=== PATIENT | female | born 1975 | race Caucasian/White ===

== ENCOUNTER 2018-11-25 10:10 | Emergency (ER) | payer BC ==
[2018-11-25 10:35] VITALS: BP 144/90
[2018-11-25] MEDS ORDERED: Ondansetron 4 MG/2 ML SDV IVPUSH ONE (10:41)
[2018-11-25] MEDS ORDERED: Sodium Chloride 0.9% 1,000 ML IV ONE (10:41)
[2018-11-25] MEDS ORDERED: Ketorolac 30 MG/ML SDV IVPUSH ONE (10:41)
--- NOTE | 2018-11-25 10:44 | EDM.PDOC ---
ED HPI GENERAL MEDICAL PROBLEM - General Chief Complaint: General Stated Complaint: Right Flank Pain Time Seen by Provider: 11/25/18 10:30 Source of Information: Reports: Patient History Limitations: Reports: No Limitations - History of Present Illness INITIAL COMMENTS - FREE TEXT/NARRATIVE: 43 YO WF presents to ER with sudden onset right flank pain with radiation to RLQ. Pt reports symptoms began 5am after using the restroom. Pt reports mild dysuria and frequent UTIs but states this feels different. Pt with associated nausea without vomiting. Pt denies fever/chills. Pt denies recent illnesses. Pt has had hysterectomy in the past. Onset: Today Duration: Hour(s): (6) Location: Reports: Abdomen, Back, Radiates to Quality: Reports: Sharp Severity: Moderate Improves with: Reports: None Worsens with: Reports: None Associated Symptoms: Reports: No Other Symptoms, Nausea/Vomiting Treatments DISASSEMBLER: Reports: Acetaminophen Right Flank Pain Score (Numeric/FACES): 8 - Related Data Allergies Allergy/AdvReac Type Severity Reaction Status Date / Time No Known Drug Allergies Allergy Cannot Verified 11/25/18 10:35 Remember Home Meds: Home Meds Omeprazole [Prilosec] 20 mg PO DAILY 04/06/15 [History] Cephalexin [Keflex] 500 mg PO Q8HR #30 capsule 11/25/18 [Rx] FLUoxetine HCl [Fluoxetine HCl] 20 mg PO DAILY 11/25/18 [History] Phenazopyridine [Pyridium] 200 mg PO TID #6 tab 11/25/18 [Rx] Warfarin Sodium [Jantoven] 5 mg PO Q48H 11/25/18 [History] Warfarin Sodium [Jantoven] 7.5 mg PO Q48H 11/25/18 [History] Past Medical History Other Musculoskeletal History: fracture finger and toe in the past. dislocation of the arm, dislocation of the shoulder. Other Hematologic History: has received iron infusions. Other Dermatologic History: skin gets itchy at times and takes loratadine, told her that it was from stress - Past Surgical History HEENT Surgical History: Reports: Tonsillectomy Female Surgical History: Reports: Hysterectomy Musculoskeletal Surgical History: Reports: Other (See Below) Other Musculoskeletal Surgeries/Procedures:: acl surgery ED ROS GENERAL - Review of Systems Review Of Systems: See Below Constitutional: Reports: No Symptoms HEENT: Reports: No Symptoms Respiratory: Reports: No Symptoms Cardiovascular: Reports: No Symptoms Endocrine: Reports: No Symptoms GI/Abdominal: Reports: Nausea : Reports: Dysuria Musculoskeletal: Reports: Back Pain Skin: Reports: No Symptoms Neurological: Reports: No Symptoms Psychiatric: Reports: No Symptoms Hematologic/Lymphatic: Reports: No Symptoms Immunologic: Reports: No Symptoms ED EXAM, GENERAL - Physical Exam Exam: See Below Exam Limited By: No Limitations General Appearance: Alert, WD/WN, Mild Distress Head: Atraumatic, Normocephalic Neck: Normal Inspection, Supple, Non-Tender, Full Range of Motion Respiratory/Chest: No Respiratory Distress, Lungs Clear, Normal Breath Sounds, No Accessory Muscle Use, Chest Non-Tender Cardiovascular: Normal Peripheral Pulses, Regular Rate, Rhythm, No Edema, No Gallop, No JVD, No Murmur, No Rub GI/Abdominal: Normal Bowel Sounds, Soft, Non-Tender, No Organomegaly, No Distention, No Abnormal Bruit, No Mass Back Exam: CVA Tenderness (R) Extremities: Normal Inspection, Normal Range of Motion, Non-Tender, Normal Capillary Refill, No Pedal Edema Neurological: Alert, Oriented, CN II-XII Intact, Normal Cognition, Normal Gait, Normal Reflexes, No Motor/Sensory Deficits Psychiatric: Normal Affect, Normal Mood Skin Exam: Warm, Dry, Intact, Normal Color, No Rash Lymphatic: No Adenopathy Course - Vital Signs Last Recorded V/S: Last Vital Signs Temp 36.2 C 11/25/18 10:25 Pulse 75 11/25/18 10:25 Resp 20 11/25/18 10:25 BP 144/90 H 11/25/18 10:25 Pulse Ox 96 11/25/18 10:25 - Orders/Labs/Meds Orders: Active Orders 24 hr Category Date Time Status Abdomen Pelvis wo Cont [CT] Stat Exams 11/25/18 10:46 Ordered URINALYSIS W/MICROSCOPIC [UA W/MICROSCOPIC] [URIN] Stat Lab 11/25/18 10:41 Ordered Sodium Chloride 0.9% [Normal Saline] 1,000 ml Med 11/25/18 10:41 Active IV .BOLUS Sodium Chloride 0.9% [Saline Flush] Med 11/25/18 11:06 Active 10 ml FLUSH Q8HR PRN Saline Lock Insert [OM.PC] Routine Oth 11/25/18 11:06 Ordered Medication Orders Sodium Chloride (Normal Saline) 1,000 mls @ 999 mls/hr IV .BOLUS ONE Stop: 11/25/18 11:41 Sodium Chloride (Saline Flush) 10 ml FLUSH Q8HR PRN PRN Reason: keep vein open Labs: Laboratory Tests 11/25/18 11/25/18 11/25/18 Range/Units 10:35 10:35 10:41 WBC 9.22 (5.00-10.00) 10^3/uL RBC 4.44 (3.80-5.50) 10^6/uL Hgb 14.6 (12.0-16.0) g/dL Hct 41.5 (37.0-47.0) % MCV 93.5 H (82.0-92.0) fL MCH 32.9 H (27.0-31.0) pg MCHC 35.2 (32.0-36.0) g/dL RDW 12.7 (11.5-14.5) % Plt Count 436 H (150-400) 10^3/uL MPV 8.7 (7.4-10.4) fL Immature Gran % (Auto) 0.1 (0.0-5.0) % Neut % (Auto) 78.1 H (50.0-70.0) % Lymph % (Auto) 15.3 L (20.0-40.0) % [place] % (Auto) 4.7 (2.0-8.0) % Eos % (Auto) 1.4 (1.0-3.0) % Baso % (Auto) 0.4 (0.0-1.0) % Immature Gran # (Auto) 0.01 (0.00-0.50) 10^3/uL Neut # (Auto) 7.20 H (2.50-7.00) 10^3/uL Lymph # (Auto) 1.41 (1.00-4.00) 10^3/uL [place] # (Auto) 0.43 (0.10-0.80) 10^3/uL Eos # (Auto) 0.13 (0.10-0.30) 10^3/uL Baso # (Auto) 0.04 (0.00-0.10) 10^3/uL Sodium 148 H (136-145) mmol/L Potassium 4.4 (3.3-5.3) mmol/L Chloride 102 (98-115) mmol/L Carbon Dioxide 24.0 (21.0-32.0) mmol/L Anion Gap 26.4 H (5-15) mmol/L BUN 13 (6-25) mg/dL Creatinine 0.68 (0.51-1.17) mg/dL Est Cr Clr Drug Dosing 104.81 mL/min Estimated GFR (MDRD) > 60 mL/min Glucose 91 (75 - 99) mg/dL Calcium 8.9 (8.7-10.3) mg/dL HCG, Qual Cancelled Urine Color Yellow (YELLOW) Urine Appearance Clear (CLEAR) Urine pH 7.0 (5.0-9.0) Ur Specific [place] 1.025 (1.005-1.030) Urine Protein Trace H (NEGATIVE) mg/dL Urine Glucose (UA) Negative (NEGATIVE) mg/dL Urine Ketones Negative (NEGATIVE) mg/dL Urine Occult Blood Trace-intact H (NEGATIVE) Urine Nitrite Negative (NEGATIVE) Urine Bilirubin Negative (NEGATIVE) Urine Urobilinogen 0.2 (0.2-1.0) E.U./dL Ur Leukocyte Esterase Negative (NEGATIVE) Meds: Medications Generic Name Dose Route Start Last Admin Trade Name Freq PRN Reason Stop Dose Admin Sodium Chloride 1,000 mls @ 999 mls/hr 11/25/18 10:41 Normal Saline IV 11/25/18 11:41 .BOLUS ONE Sodium Chloride 10 ml 11/25/18 11:06 Saline Flush FLUSH Q8HR PRN keep vein open Discontinued Medications Generic Name Dose Route Start Last Admin Trade Name Freq PRN Reason Stop Dose Admin Ketorolac Tromethamine 30 mg 11/25/18 10:41 Toradol IVPUSH 11/25/18 10:42 ONETIME ONE Ondansetron HCl 4 mg 11/25/18 10:41 Zofran IVPUSH 11/25/18 10:42 ONETIME ONE - Radiology Interpretation Free Text/Narrative:: CT abd/pelvis- NAD Departure - Departure Time of Disposition: 12:05 Disposition: Home, Self-Care 01 Condition: Good Clinical Impression: Urinary tract infection Qualifiers: Urinary tract infection type: acute cystitis Hematuria presence: without hematuria Qualified Code(s): N30.00 - Acute cystitis without hematuria - Discharge Information Prescriptions: Cephalexin [Keflex] 500 mg PO Q8HR #30 capsule Phenazopyridine [Pyridium] 200 mg PO TID #6 tab Instructions: Urinary Tract Infection, Adult, [id number] Referrals: Vicky Terry, RAP ARTIST [Primary Care Provider] - Forms: ED Department Discharge Additional Instructions: 1. discharge home 2. keflex 500mg PO TID x 10 days 3. pyridium 200mg PO TID #6 4. follow up with PCP in 48 hours for recheck and urine culture results 5. return to ER for worsening symptoms - My Orders Last 24 Hours: My Active Orders 11/25/18 10:41 URINALYSIS W/MICROSCOPIC [UA W/MICROSCOPIC] [URIN] Stat Sodium Chloride 0.9% [Normal Saline] 1,000 ml IV .BOLUS 11/25/18 10:46 Abdomen Pelvis wo Cont [CT] Stat 11/25/18 11:06 Sodium Chloride 0.9% [Saline Flush] 10 ml FLUSH Q8HR PRN Saline Lock Insert [OM.PC] Routine - Assessment/Plan Last 24 Hours: My Active Orders 11/25/18 10:41 URINALYSIS W/MICROSCOPIC [UA W/MICROSCOPIC] [URIN] Stat Sodium Chloride 0.9% [Normal Saline] 1,000 ml IV .BOLUS 11/25/18 10:46 Abdomen Pelvis wo Cont [CT] Stat 11/25/18 11:06 Sodium Chloride 0.9% [Saline Flush] 10 ml FLUSH Q8HR PRN Saline Lock Insert [OM.PC] Routine Assessment:: 1. urinary tract infection 2. right flank pain Plan: 1. discharge home 2. keflex 500mg PO TID x 10 days 3. pyridium 200mg PO TID #6 4. follow up with PCP in 48 hours for recheck and urine culture results 5. return to ER for worsening symptoms
[2018-11-25 11:02] LABS: ANION GAP 26.4 mmol/L (5-15); CHLORIDE,CL 102 mmol/L (98-115); SODIUM,NA 148 mmol/L (136-145)
[2018-11-25] MEDS ORDERED: Sodium Chloride 0.9% 10 ML Syringe FLUSH PRN (11:06)
[2018-11-25] MEDS ORDERED: Phenazopyridine 100 MG Tab PO ONE (11:45)
--- NOTE | 2018-11-25 12:02 | CT ---
[id number] CT/CT Abdomen Pelvis WO IV EXAM: ABDOMEN AND PELVIS CT WITHOUT CONTRAST INDICATION: PAIN. COMPARISON: None. DISCUSSION: There is a small fat-containing umbilical hernia. Scattered colonic diverticula without evidence of diverticulitis. Probable hysterectomy. Unenhanced images of the liver, gallbladder, spleen, pancreas, adrenal glands, kidneys, small bowel and the appendix are unremarkable. No adenopathy, free air free fluid. Scattered degenerative changes in the spine. The osseous structures are otherwise unremarkable. IMPRESSION: 1. No acute findings. Tani Carranza MD 11/25/18 1300 Thank you for allowing us to participate in the care of your patient.
[2018-11-25] MEDS ORDERED: Acetaminophen/HYDROcodone 325-5 MG Tab PO ONE (12:14)
== END 2018-11-25 12:25 | disposition home or self-care (01) ==
LOC: KA.ED 10:10
DX: N30.00 Acute cystitis without hematuria (principal); Z79.899 Other long term (current) drug therapy; Z79.01 Long term (current) use of anticoagulants
CPT/HCPCS: 36415; 74176; 80048; 81001; 85025; 87086; 96361; 96374; 96375; 99284-25; A9270-GY; J1885; J2405; J7030

== ENCOUNTER 2020-03-26 20:34 | Emergency (ER) | payer BC ==
[2020-03-26] MEDS: Diphtheria,Pertussis(Acell),Tetanus Vaccine 0.5 ML SDV IM ONE (21:00)
[2020-03-26] MEDS: Lidocaine 1% 20 ML MDV INJECT ONE (21:05)
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
[2020-03-26] MEDS: Lidocaine 1% 20 ML MDV ONE (22:11)
[2020-03-26 22:25] VITALS: BP 140/85; PULSE 82
== END 2020-03-26 21:55 | disposition home or self-care (01) ==
LOC: KA.ED 20:34
DX: S81.811A Laceration without foreign body, right lower leg, initial encounter (principal); K21.9 Gastro-esophageal reflux disease without esophagitis; F32.9 Major depressive disorder, single episode, unspecified; E66.9 Obesity, unspecified; Z68.35 Body mass index [BMI] 35.0-35.9, adult; Z79.899 Other long term (current) drug therapy; Z23 Encounter for immunization; W26.8XXA Contact with other sharp object(s), not elsewhere classified, initial encounter
CPT/HCPCS: 12004; 12015; 90471; 90715; 99282-25; 99283; J2001

== ENCOUNTER 2021-03-25 17:50 | Emergency (ER) | payer BC, MEDICAID ==
[2021-03-25 18:05] VITALS: BP 133/94; PULSE 98
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
[2021-03-25] MEDS ORDERED: Ketorolac 60 MG/2 ML SDV IM ONE (19:05)
[2021-03-25] MEDS ORDERED: Diclofenac Sodium 1% Gel 100 GM Tube TOP ONE (19:25)
--- NOTE | 2021-03-26 09:22 | CR ---
[id number] RAD/RAD Foot Left 3V Min Exam: RAD Foot Left 3V Min Indication:PAIN Comparison: No prior imaging for comparison. Discussion/Impression: No evidence of an acute fracture or dislocation. No AVN or erosive changes. Plantar calcaneal spur. Bradley Feng MD 03/26/21 0940 Thank you for allowing us to participate in the care of your patient.
== END 2021-03-25 19:20 | disposition home or self-care (01) ==
LOC: KA.ED 17:50
DX: M72.2 Plantar fascial fibromatosis (principal); K21.9 Gastro-esophageal reflux disease without esophagitis; E66.9 Obesity, unspecified; Z68.30 Body mass index [BMI] 30.0-30.9, adult; Z86.73 Personal history of transient ischemic attack (TIA), and cerebral infarction without residual deficits; Z79.899 Other long term (current) drug therapy; Z79.01 Long term (current) use of anticoagulants; Z87.891 Personal history of nicotine dependence
CPT/HCPCS: 73630-LT; 99283; 99283-25

== ENCOUNTER 2021-11-25 13:09 | Emergency (ER) | payer MEDICAID ==
[2021-11-25 13:30] VITALS: BP 136/98; PULSE 102
[2021-11-25] MEDS ORDERED: traMADol 50 MG Tab PO ONE (14:14)
== END 2021-11-25 14:50 | disposition home or self-care (01) ==
LOC: KA.ED 13:09
DX: M25.561 Pain in right knee (principal); E66.9 Obesity, unspecified; Z68.31 Body mass index [BMI] 31.0-31.9, adult; Z79.01 Long term (current) use of anticoagulants; Z79.899 Other long term (current) drug therapy
CPT/HCPCS: 73562-RT; 99283; 99283-25; A9270-GY